=== PATIENT | male | born 1950 | race Caucasian/White ===

== ENCOUNTER 2017-08-23 18:15 | Emergency (ER) | payer MEDICARE ==
[~2017-08-23] VITALS: Ht 177.8 cm; Wt 150.0 kg
[~2017-08-23 18:15] MED LIST: ALLOPURINOL100 MG PO; AMMONIUM LACTATE121; AMMONIUM LACTATE121 EX; AMOXICILLIN875 MG OR; ASPIRIN CHEWABL81 MG PO; ATIVAN0.5 MG PO; ATIVAN1 M1 PO; AUGMENTIN875TAB PO; B-121000 MC1 PO; B1 HIGH POTENC100 MG PO; CINNAMON500 MG PO; CIPROFLOXACN500 MG PO; CLARITIN10 M1 PO; COLACE50 MG PO; CVS OMEPRAZOLE20 MG PO; D 50005000 UNIT PO; DIFLUCAN150 MG PO; DOCUSATE SO1 PO; ENDUR-ACIN500 MG PO; FISH OIL1000 MG PO; FISH OIL1200 M1 PO; FLAX SEED1000 MG PO; FLEXERIL PO; FLEXERIL5 M1 PO; FLOVENT HFA110 MCG IN; FOLIC ACID1 MG; GARLIC OIL 15003 MG OR; GARLIC1000 MG PO; GINKGO BILOB60 MG OR; GLUCOSAMINE1500 MG PO; HYDROCO/APAP1 T13 PO; IBUPROFEN800 MG PO; KEFLEX500 M1 PO; KETOCONAZOLE2 % EX; KLOR-CON M2020 MEQ PO; KP MELATONIN3 MG PO; LASIX 80 MG TAB80 M1 PO; LASIX40 MG OR; LEVOTHYROXIN100 MC1 PO; LORTAB 1010 MG PO; LORTAB 5/3255 MG PO; LORTAB 7.57.5 MG PO; METFORMIN500 MG PO; METOLAZONE5 MG OR; METRONIDAZOL250 MG PO; MOTRIN800 MG PO; MOTRIN800 MG/TAB PO; NIACIN500 M2 PO; NO MEDS; OAT BRAN OR; POTASSIUM CHLO20 MEQ OR; PROAIR HFA IN; SENNOSIDES8.6 M1 PO; SENOKOT TO GO8.6 MG OR; SENOKOT TO GO8.6 MG PO; SILVADENE1 % TOP; SPIRIVA HANDIHALER IN; SPIRONOLACT25 MG PO; ST JOHN WORT300 MG PO; TRIAMCINOLON0.11 EX; VENTOLIN HFA IN; VIT B-COMPLX100 MG OR; VITAMIN A8000 UNIT PO
[2017-08-23 19:05] LABS: HEMATOCRIT 42.5 % (39.0-50.0); HEMOGLOBIN 14.2 g/dl (14.0-18.0); IMMATURE GRANULOCYTES 0.6 % (0.0-1.0); MEAN CORPUSCULAR HGB 30.4 pG CALC (26.0-32.0); MEAN CORPUSCULAR HGB CONC 33.4 g/L CALC (32.0-36.0); NEUT# 9.84 thou/uL (1.82-7.42); RED BLOOD COUNT 4.67 mill/uL (4.70-6.10); RED CELL DISTRI WIDTH 14.2 % (11.5-15.5)
[2017-08-23 19:10] LABS: ALBUMIN 3.7 g/dL (3.2-5.0); ALKALINE PHOSPHATASE 68 u/l (38-126); ANION GAP 12 (6-22 (CALC)); BILIRUBIN, TOTAL 0.9 mg/dL (0.0-1.4); BUN 15 mg/dL (8-23); BUN/CREATININE RATIO 20 (12-20 (CALC)); CALCIUM 9.4 mg/dL (8.4-10.2); CARBON DIOXIDE 26 mmol/l (22-30); CHLORIDE 106 mmol/l (95-108); CREATININE 0.8 mg/dL (0.7-1.3); GFR > 60 ML/MIN (>=60 (CALC)); GFR FOR AFR.AMER. > 60 ML/MIN (>=60 (CALC)); GLUCOSE 103 mg/dL (82-115); SGOT/AST 32 u/l (19-48); SGPT/ALT 45 u/l (11-66); SODIUM 140 mmol/l (137-146); TOTAL PROTEIN 6.5 g/dL (6.3-8.2)
[2017-08-23 19:23] LABS: MYOGLOBIN 45 ng/mL (0 - 121)
[2017-08-23 19:36] LABS: ACT PARTIAL THROMBO TIME 25.9 SECONDS (20.0-32.5); PROTHROMBIN TIME 10.4 SECONDS (9.0-12.5)
[2017-08-23 21:05] VITALS: BP 179/89
[2017-08-23] MEDS ORDERED: BENADRYL 50MG C50 MG PO (21:08)
== END 2017-08-23 21:17 | disposition home or self-care (01) ==
LOC: ED 18:15
PROVIDERS: Emergency Medicine
DX: T63.441A Toxic effect of venom of bees, accidental (unintentional), initial encounter (principal); E11.9 Type 2 diabetes mellitus without complications; J44.9 Chronic obstructive pulmonary disease, unspecified; M19.90 Unspecified osteoarthritis, unspecified site; G47.30 Sleep apnea, unspecified; R07.9 Chest pain, unspecified; R06.2 Wheezing